=== PATIENT | male | born 1960 | race Caucasian/White ===

== ENCOUNTER 2024-04-03 14:45 | Emergency (ER) | payer MEDICARE, BC, SELFPAY ==
[2024-04-03 14:47] VITALS: BP 144/82
--- NOTE | 2024-04-03 15:08 | ED.GENMED ---
History of Present Illness
General
Chief Complaint: Flank Pain
Source: patient
Exam Limitations: none
Time Seen by Provider: 04/03/24 15:00
Nursing documentation reviewed up to this point in time: agreed with
History of Present Illness
History of Present Illness:
Patient with history of kidney stones, presents to ED secondary to recurrent right flank pain associated with nausea and vomiting over the past 2 days. Denies fever or chills. Denies difficulty with urination. Patient's last episode of kidney
stone was in April 2023, which required intervention by his urologist, Dr. Ramirez.
Past History
Past History
ED Past Medical History: CAD, GERD, HTN and Other (GERD, hiatal hernia)
Social History
Tobacco: Non-smoker
Alcohol: None
Family History
Family History: CAD
Review of Systems
Review of Systems
Constitutional: Reports no symptoms
ABD/GI: Reports nausea and vomiting; Denies abdominal pain
: Reports flank pain; Denies difficulty voiding
Musculoskeletal: Reports no symptoms
Skin: Reports no symptoms
Neurological: Reports no symptoms
Phy Exam
Physical Exam
Physical Exam:
Physical Exam
General: mild painful distress, not acutely ill. afebrile
Head: nc/at. eomi
Neck: supple. normal range of motion.
Abdomen: normal bowel sounds. not tender.
Neuro: alert and oriented. no focal neurological deficits
Skin: no rash
Psychiatric: well kept. interactive and cooperative
Extremities: no edema. no calf tenderness.
Course
Orders/Labs/Results
Orders:
Orders
04/03/24 15:07
CT Abd/pel Without Iv Or Oral Urgent
Comment:
Reason For Exam: right flank pain w hx kidney stones
0.9% Sodium Chloride 500 ml [Nss] 500 ml IV BOLUS
Ketorolac [Toradol] 15 mg IV NOW STA
Lorazepam [Ativan] 0.5 mg IV NOW STA
Ondansetron Injectable [Zofran] 4 mg IV NOW STA
04/03/24 15:35
Basic Metabolic Panel Urgent
Complete Blood Count/With Diff Urgent
04/03/24 16:39
Urinalysis Reflex To Culture Urgent
Date Specimen was Collected: 04/03/24
Time Specimen was Collected: 16:33
Urine Microscopic Reflex Cult Urgent
Abnormal Lab Results
04/03/24 04/03/24
15:35 16:39
WBC 13.9 H 10^3/uL
(4.8-10.8)
RBC 4.69 L 10^6/uL
(4.70-6.10)
MCH 31.8 H pg
(27.0-31.0)
Abs Immat Gran (auto) 0.1 H 10^3/uL
(0-0.05)
Absolute Neuts (auto) 12.0 H 10^3/uL
(1.4-6.5)
Absolute Lymphs (auto) 0.9 L 10^3/uL
(1.2-3.4)
Absolute Monos (auto) 0.9 H 10^3/uL
(0.1-0.6)
Immature Gran % 0.6 H %
(0-0.5)
Neutrophils % 86.3 H %
(42.2-75.2)
Lymphocytes % 6.3 L %
(20.5-51.1)
Glucose 106 H mg/dl
(70-99)
Urine Ketones 3+ A
(Negative)
Ur Occult Blood Reflex 4+ A
(Negative)
Urine Bilirubin 1+ A
(Negative)
Leukocyte Esterase Rfl Trace A
(Negative)
Urine RBC 40-50 A /HPF
(0-2)
04/03/24 15:35
04/03/24 15:35
Vital Signs
Initial and Last Documented VS:
Initial Vital Signs
Temp Pulse Resp BP Pulse Ox
98.3 F 76 18 144/82 98
04/03/24 14:47 04/03/24 14:47 04/03/24 14:47 04/03/24 14:47 04/03/24 14:47
Last Documented Vital Signs
Temp Pulse Resp BP Pulse Ox
98.3 F 77 18 101/77 98
04/03/24 14:47 04/03/24 17:25 04/03/24 17:25 04/03/24 17:25 04/03/24 17:25
MDM/Problems Addressed
MDM/Problems Addressed:
History and exam, along with CT scan consistent with recurrent renal colic, secondary to obstructing 5 mm proximal ureteral stone. Patient otherwise remains afebrile, hemodynamically stable, and nontoxic-appearing. Patient reports improvement
symptoms after treatment. Patient will be discharged home in stable condition, to the care of his family, with recommendation to follow-up with his urologist for reevaluation. Advised to return to ED with worsening symptoms, i.e.
fever/vomiting/worsening pain. Urine strainer provided at time of discharge.
*Critical Care Note
Total Time (30-74mins, 75-104mins- exclusive of procedures): Not Applicable
ED Attending Note
-
Portions of this chart may have been created with voice recognition software.� Occasional wrong word or��sound alike� substitutions may have occurred due to the inherent limitations of voice recognition software.
Discharge Plan
Departure
Patient Disposition: Home (Routine Discharge)
Date of Disposition: 04/03/24
Time of Disposition: 17:15
Patient with high blood pressure during this ER visit?: Yes
Condition: Good
Discharge Problem:
Renal colic on left side
Instructions: Renal Colic (DC)
Prescriptions:
New
ketorolac 10 mg tablet
10 mg PO Q8H PRN (Reason: Pain) Qty: 14 0RF
Rx Instructions:
maximum total duration of 5 days from all oral, intranasal, or parenteral formulations
No Action
clopidogrel 75 MG tablet
75 mg PO DAILY Qty: 90 10RF
aspirin 81 MG tablet,delayed release (DR/EC)
81 mg PO DAILY 0RF
lisinopril 2.5 MG tablet
2.5 mg PO DAILY Qty: 90 10RF
omeprazole 20 mg Tablet,Delayed Release (Dr/Ec)
20 mg PO DAILY
atorvastatin 80 MG tablet
80 mg PO QPM
metoprolol succinate 25 MG tablet extended release 24 hr
25 mg PO QPM
Referrals:
NONE,* [Family Provider] -
Wesley Ramirez MD [Active] -
Activity Restrictions/Additional Instructions:
As discussed, please follow-up with your urologist for further evaluation and treatment. Please return to ED with worsening symptoms, i.e. fever/vomiting/worsening pain/inability to urinate
Interventions
Interventions:
*Risk Screen - Suicide Last Done: 04/03/24 14:47
*General Assessment Last Done: 04/03/24 14:47
*Neglect/Abuse Screening Last Done: 04/03/24 14:47
*Nursing Disposition Last Done: 04/03/24 17:27
[facility] Assessment Last Done: 04/03/24 15:40
ED-Male Genitourinary Assessment Last Done: 04/03/24 15:41
Discharge Date and Time
Discharge Date/Time: 04/03/24 17:39
Print Language: GUATEMALAN
[2024-04-03 15:27] VITALS: BMI 24.3
[2024-04-03 15:28] VITALS: BP 133/77
[2024-04-03 15:40] LABS: % Basophils 0.2 % (0-2); % Eosinophils 0.3 % (0-6); % Immature Granulocytes 0.6 % (0-0.5); % Lymphocytes 6.3 % (20.5-51.1); % Monocytes 6.3 % (1.7-9.3); % Neutrophils 86.3 % (42.2-75.2); Absolute Immature Granulocytes 0.1 10^3/uL (0-0.05); Absolute Lymphocytes 0.9 10^3/uL (1.2-3.4); Absolute Monocytes 0.9 10^3/uL (0.1-0.6); Hematocrit 41.8 % (39.0-52.0); Hemoglobin 14.9 g/dL (13.0-18.0); Mean Corp Hgb Conc. 35.6 g/dL (33.0-37.0); Mean Corpuscular Hgb 31.8 pg (27.0-31.0); Mean Corpuscular Volume 89.1 fL (80.0-94.0); Mean Platelet Volume 9.9 fL (7.4-10.4); Nucleated Red Blood Cells % 0 % (-); Platelet Count 178 10^3/uL (130-400); Red Blood Cell Count 4.69 10^6/uL (4.70-6.10); Red Cell Dist. Width 12.7 % (11.5-14.5); White Blood Cell Count 13.9 10^3/uL (4.8-10.8)
[2024-04-03] MEDS: NSS 500 IV (15:46)
[2024-04-03] MEDS: TORADOL 15 MG IV (15:47)
[2024-04-03] MEDS: ATIVAN 0.5 MG IV (15:49)
[2024-04-03 15:53] LABS: Blood Urea Nitrogen 15 mg/dl (9-20); Calcium 9.9 mg/dl (8.4-10.2); Carbon Dioxide 26 mmol/L (22-30); Chloride 102 mmol/L (98-107); Estimated Creatinine Clearance 78 ml/min; Glucose 106 mg/dl (70-99); Potassium 4.6 mmol/L (3.5-5.1); Sodium 138 mmol/L (135-145); eGFR > 60.00
[2024-04-03] MEDS: ZOFRAN 4 MG IV (15:53)
[2024-04-03 16:00] VITALS: BP 117/67
[2024-04-03 16:57] LABS: Urine Albumin Trace (Neg - Trace); Urine Bilirubin 1+ (Negative); Urine Character Very Cloudy (Clear); Urine Color Amber; Urine Glucose Negative (Negative); Urine Ketone 3+ (Negative); Urine Leukocyte Trace (Negative); Urine Nitrite Negative (Negative); Urine Occult Blood 4+ (Negative); Urine Urobilinogen Negative (Neg - 1+)
[2024-04-03 17:07] LABS: Urine Red Blood Cell 40-50 /HPF (0-2)
[2024-04-03 17:25] VITALS: BP 101/77
== END 2024-04-03 17:39 | disposition home or self-care (01) ==
LOC: EMR 14:45
PROVIDERS: EMERGENCY PHYSICIAN Emergency Medicine
DX: N20.2 Calculus of kidney with calculus of ureter (principal); I25.10 Atherosclerotic heart disease of native coronary artery without angina pectoris; K21.9 Gastro-esophageal reflux disease without esophagitis; I10 Essential (primary) hypertension; Z82.49 Family history of ischemic heart disease and other diseases of the circulatory system; Z87.442 Personal history of urinary calculi
CPT/HCPCS: 99284; 96374; 96375; 96361; 74176; 80048; 81003; 81015; 85025

== ENCOUNTER → 2024-05-07 09:21 | Outpatient (REF) | payer MEDICARE, BC, SELFPAY | LOC: REG 09:21 | PROVIDERS: ATTENDING PHYSICIAN Urology | DX: N20.0 Calculus of kidney (principal) | CPT/HCPCS: 74018 ==

== ENCOUNTER → 2024-09-20 09:16 | Outpatient (REF) | payer MEDICARE, BC, SELFPAY | LOC: RAD 09:16 | PROVIDERS: ATTENDING PHYSICIAN Obstetrics & Gynecology | DX: R10.13 Epigastric pain (principal); R74.8 Abnormal levels of other serum enzymes | CPT/HCPCS: 76700 ==

== ENCOUNTER 2024-10-29 14:26 | Emergency (ER) | payer MEDICARE, BC, SELFPAY ==
[2024-10-29 14:30] VITALS: BP 137/71
--- NOTE | 2024-10-29 16:14 | ED.GENMED ---
History of Present Illness
General
Chief Complaint: Skin Problem
Source: patient
Exam Limitations: none
Time Seen by Provider: 10/29/24 15:48
Nursing documentation reviewed up to this point in time: agreed with
History of Present Illness
History of Present Illness:
Patient is a 64 year old male presenting to the emergency department with concerns of tick embedded in his right inner thigh. Patient reports that last night, prior to that he noticed a scab on his right inner thigh. He did attempt to unroof it
with tweezers although was unsuccessful. Patient states that today area seemed more red and his ultimate concern is that there is a tick embedded in his right upper thigh. He reports very minimal pain around scab. He states that last week he did
have what appeared to be a deer tick crawling on his arm which he believes his dog may have brought into the house.
Patient denies any fevers, chills, headache. No joint pain or no rashes across his body.
Past History
Past History
ED Past Medical History: CAD, GERD, HTN and Other (GERD, hiatal hernia)
Social History
Tobacco: Non-smoker
Alcohol: None
Family History
Family History: CAD
Review of Systems
Review of Systems
Allergies reviewed?: Yes
All Other Systems: ROS reviewed and negative except as documented in HPI and ROS
Phy Exam
Physical Exam
Physical Exam:
Vitals: Patient's vital signs are stable. Afebrile
General: Patient is well appearing, no acute distress
Skin: Approximately 0.5 cm round scab on right medial upper thigh with surrounding erythema. No overlying warmth or red streaking no visible tick. No bull's-eye rash.
Head: Normocephalic, atraumatic
Throat: Protecting airway
Neck: Normal ROM, no cervical spine tenderness
Cardiac: Regular rate
Pulm: No apparent respiratory distress
Abdomen: Nondistended
Extremities: No evidence of cyanosis or edema
Neuro: Grossly intact
Psychiatric: Normal affect.
Course
Orders/Labs/Results
Orders:
Orders
10/29/24 16:39
Lyme Progressive Urgent
Doxycycline [Vibramycin] 100 mg PO NOW STA
Vital Signs
Initial and Last Documented VS:
Initial Vital Signs
Temp Pulse Resp BP Pulse Ox
98.6 F 63 16 137/71 98
10/29/24 14:30 10/29/24 14:30 10/29/24 14:30 10/29/24 14:30 10/29/24 14:30
Last Documented Vital Signs
Temp Pulse Resp BP Pulse Ox
98.6 F 63 16 137/71 98
10/29/24 14:30 10/29/24 14:30 10/29/24 14:30 10/29/24 14:30 10/29/24 14:30
Procedures
Incision/Drainage/Joint Aspiration
Right Upper Medial Thigh:
Anethesia: 1% Lidocaine with Epi
Preparation: cleaned with Betadine
Type of procedure: incise
Nature of site: other (Scab)
How much fluid was obtained?: none
Additional information:
Verbal consent obtained by patient. Anesthetized with 1% lidocaine with epinephrine and cleansed with Betadine. 11 blade used to make small incision to unroofed scab. No visualized embedded tick. Very minimal bleeding. Patient tolerated
procedure well.
MDM/Problems Addressed
Differential Diagnosis Includes:
Not limited to: Embedded tick, foreign body, bug bite, cellulitis, Lyme disease, etc.
MDM/Problems Addressed:
64-year-old male presenting with concerns of embedded tick in right medial thigh which she noticed last night. No fevers, chills, headache, joint pain. Vitals and physical exam as above. Patient does have a small scab on the right medial upper
thigh with surrounding erythema. It appears to be simply a scab although will perform small incision to further visualize if embedded tick is present.
Verbal consent obtained by patient. Wound anesthetized with 1% lidocaine with epinephrine. Area cleaned with Betadine. Very small incision made with 11 blade and probed with tweezers. No evidence of embedded tick. Patient tolerated procedure
well.
Suspect scab from self excoriation of wound at home the night prior. It may have initially presented as ingrown hair versus bug bite versus other. Cannot rule out tick bite. Will send blood test for Lyme. Given surrounding erythema�will start
patient on the doxycycline to cover for developing mild cellulitis, Lyme prophylaxis. Patient given first dose of doxycycline in the emergency department. Otherwise feel stable for discharge home. Very close return precautions discussed. Patient
and patient's comfortable with plan. Did send patient information to PCP operating room scheduler to help him establish primary care.
Chronic conditions affecting care:
N/A
Acute Exacerbation and/or Progression of Chronic Illness:
N/A
*Pulse Oximetry
Patient hypoxic: no
*EKG
Interpreted by ED Provider?: NA
*Information Management Manager Interpretation
Rate: Information Management Manager- N/A
*Critical Care Note
Total Time (30-74mins, 75-104mins- exclusive of procedures): Not Applicable
ED Attending Note
-
Portions of this chart may have been created with voice recognition software.� Occasional wrong word or��sound alike� substitutions may have occurred due to the inherent limitations of voice recognition software.
Discharge Plan
Departure
Patient Disposition: Home (Routine Discharge)
Date of Disposition: 10/29/24
Time of Disposition: 16:44
Patient with high blood pressure during this ER visit?: No
Condition: Good
Discharge Problem:
Cellulitis of right thigh
Instructions: Cellulitis (Skin Infection), Adult (DC), BLOOD PRESSURE
Prescriptions:
New
doxycycline hyclate 100 mg tablet
100 mg PO BID 7 Days Qty: 14 0RF
No Action
clopidogrel 75 MG tablet
75 mg PO DAILY Qty: 90 10RF
aspirin 81 MG tablet,delayed release (DR/EC)
81 mg PO DAILY 0RF
lisinopril 2.5 MG tablet
2.5 mg PO DAILY Qty: 90 10RF
omeprazole 20 mg Tablet,Delayed Release (Dr/Ec)
20 mg PO DAILY
atorvastatin 80 MG tablet
80 mg PO QPM
metoprolol succinate 25 MG tablet extended release 24 hr
25 mg PO QPM
ketorolac 10 mg tablet
10 mg PO Q8H PRN (Reason: Pain) Qty: 14 0RF
Rx Instructions:
maximum total duration of 5 days from all oral, intranasal, or parenteral formulations
Referrals:
NONE,* [Family Provider] -
Activity Restrictions/Additional Instructions:
Return to the emergency department with any high fevers, worsening in redness, swelling around wound, purulent drainage, new rash on body, worsening in current symptoms, or any other concern
-As discussed that there was no tick visualized on exam while in the emergency department. We did draw blood to test you for Lyme disease we will contact you if this test comes back positive.
-A prescription for doxycycline has been sent to your pharmacy to cover developing cellulitis which should take twice a day for the next week. You were given your first dose in the emergency department
-I have sent your information to her primary care team to contact you to establish care. You should follow-up with them to ensure that symptoms improve and for further evaluation as needed
Monitor your symptoms closely and return to the emergency department with any acute worsening/new symptoms or any other concerns
Interventions
Interventions:
*Risk Screen - Suicide Last Done: 10/29/24 14:30
*General Assessment Last Done: 10/29/24 15:49
*Neglect/Abuse Screening Last Done: 10/29/24 14:30
*ED COVID-19 Vaccine History Last Done: 10/29/24 15:49
*Nursing Disposition Last Done: 10/29/24 17:10
ED-Skin Assessment Last Done: 10/29/24 15:50
Discharge Date and Time
Discharge Date/Time: 10/29/24 17:12
Print Language: NIUEAN
[2024-10-29] MEDS: VIBRAMYCIN 100 MG PO (16:49)
[2024-11-01 13:29] LABS: Lyme Antibody Screen, EIA Negative (Negative)
== END 2024-10-29 17:12 | disposition home or self-care (01) ==
LOC: EMR 14:26
PROVIDERS: Physician Assistant; EMERGENCY PHYSICIAN Student in an Organized Health Care Education/Training Program
DX: L03.115 Cellulitis of right lower limb (principal); R23.4 Changes in skin texture; I25.10 Atherosclerotic heart disease of native coronary artery without angina pectoris; K21.9 Gastro-esophageal reflux disease without esophagitis; I10 Essential (primary) hypertension
CPT/HCPCS: 10060; 99283; 86618